=== PATIENT | female | born 1955 | race Hispanic/Latino ===

== ENCOUNTER 2021-01-29 13:31 | Emergency (ER) | payer MEDICARE, OTHER, SELFPAY ==
[2021-01-29 13:31] VITALS: BP 165/101; PULSE 85; RESP 18; TEMP 36.3; O2SAT 99; BMI 36.6
--- NOTE | 2021-01-29 15:06 | CT_ITS ---
STUDY: CT ABDOMEN AND PELVIS WITH CONTRAST REASON FOR EXAM: Female, 65 years old. Abdominal pain -- IV PO Contrast RADIATION DOSAGE (If Supplied By Facility): CTDIvol = ( 15.26 ) mGy, DLP = ( 918.64 ) mGycm TECHNIQUE: Transaxial images were obtained from the dome of the diaphragm to the symphysis pubis without oral contrast. Oral and amp; IV Gastrografin and amp; 100mL Isovue-370 was administered. Sagittal and coronal images were reconstructed. Individualized dose optimization techniques were used for this CT. COMPARISON: None. FINDINGS: There is a subpleural 2.5 mm nodule within the right middle lobe. There is a granuloma within the right middle lobe. The visualized portions of the heart are within normal limits. The liver is diffusely low in attenuation consistent with fatty infiltration. There is a too small to characterize low-attenuation focus within the dome of the right hepatic lobe which may reflect a hemangioma or cyst. There is an additional too small to characterize low-attenuation focus within the left hepatic lobe. Normal gallbladder and extrahepatic biliary system. Normal spleen. Normal pancreas. Normal bilateral adrenal glands. There is a nonobstructing 1.3 mm right renal calculus. There are too small to characterize low-attenuation foci within the left kidney which may reflect underlying cysts. Normal visualized stomach. Normal small intestine. There is diverticulosis, with thickening of the sigmoid colon wall, and pericolonic inflammation changes consistent with acute diverticulitis. There is non-visualization of the appendix. There is diffuse atherosclerotic calcification of the abdominal aorta, without a demonstrated aneurysm. Normal inferior vena cava. Normal retroperitoneum. Normal urinary bladder. Normal abdominal wall. The bones are diffusely demineralized. There are diffuse degenerative changes of the visualized lumbar spine. There is a Schmorl''s node defect within the superior endplate of T12. There is a mid body deformity of L5 which is likely chronic. CT/Abdomen/Pelvis WITH Contrast IMPRESSION: Acute diverticulitis of the sigmoid colon. Fatty infiltration of the liver. Atherosclerosis. Nonobstructing 1.3 mm right renal calculus. Electronically Signed: Julita Mosquera MD at 17:47 EDT Tel , Service support ,
--- NOTE | 2021-01-29 15:08 | EX.ED.DYSGE1 ---
HPI History of Present Illness Chief Complaint: Abd Pain Informant: patient Onset/Context/Timing Onset: Today Context: Gradual Onset Timing: Intermittent Current Severity: Moderate Maximum Severity: Moderate Narrative Narrative: Patient present secondary to abdominal pain. She states has been having diarrhea for the past 2 months. This morning shortly after 2 AM she woke up with lower abdominal pain and cramping. She states was eventually able to go back to sleep. After eating breakfast this morning her pain worsened. Pain seems to be worse in the right lower quadrant but does extend across the entire lower abdomen. She denies fever or chills. No nausea or vomiting. [facility] Medical History Diverticulitis Rheumatic fever TB (tuberculosis) Home Medications ciprofloxacin HCl [Cipro] 500 mg PO BID #20 tab 01/29/21 [Rx Last Taken Unknown] metronidazole [Flagyl] 500 mg PO TID #30 tab 01/29/21 [Rx Last Taken Unknown] Allergy/AdvReac Type Severity Reaction Status Date / Time VIT B 12 AdvReac Nausea Uncoded 01/29/21 13:34 Surgical History History of hysterectomy History of partial colectomy Social History Smoking Status: Never smoker ROS ROS ED Constitutional Constitutional ED: Denies chills or fever(s) Eyes Eyes: Denies change in vision ENT ENT ED: Denies sore throat Cardiovascular Cardiovascular: Denies chest pain Respiratory/Chest Respiratory/Chest: Denies cough or dyspnea Gastrointestinal Gastrointestinal: Reports abdominal pain and diarrhea; Denies nausea or vomiting Genitourinary Genitourinary ED: Denies dysuria Musculoskeletal Musculoskeletal: Denies back pain Integumentary Denies rash Neurologic Neurologic: Denies headache(s) or weakness Psychiatric Psychiatric: Denies anxiety or depression Endocrine Endocrinology: Denies polydipsia or polyuria Allergic/Immunologic Allergic/Immunologic ED: Denies urticaria EXAM Physical Exam Const Vital Signs: 01/29/21 13:31 Temperature 97.4 F L Temperature Source Temporal Pulse Rate 85 Respiratory Rate 18 Blood Pressure 165/101 H Blood Pressure Mean 122 Pulse Ox 99 Oxygen Delivery Method Room Air Positive well nourished and well developed General Appearance ED: well developed HEENT Reports normocephalic and head/scalp atraumatic Eyes PERRL and EOMs intact bilaterally Neck supple Chest Wall inspection of chest normal and palpation of chest normal Resp normal respiratory effort and clear to auscultation bilaterally Cardio regular rate and regular rhythm GI Auscultation: hypoactive bowel sounds Palpation: soft and tender other (Mild lower abdominal tenderness location. No guarding or rebound.) Extremity normal to inspection Neuro oriented x3 and no sensory deficits noted Sensorium / Orientation: alert Motor Exam: strength 5/5 throughout Psych mental status grossly normal Skin no rashes or lesions noted MDM MDM MDM Narrative Medical decision making narrative: Patient was given Toradol and Bentyl for pain. Lab work, urinalysis, CT abdomen and pelvis obtained. Lab Data Attestation: I reviewed the patient's lab results. Labs: Laboratory Results - last 24 hr 01/29/21 01/29/21 01/29/21 15:20 15:30 15:30 WBC 9.2 RBC 4.86 Hgb 14.4 Hct 44.5 MCV 91.6 MCH 29.6 MCHC 32.4 RDW Std Deviation 42.4 RDW Coeff of Majo 12.7 Plt Count 233 MPV 10.8 Immature Gran % (Auto) 0.200 Neut % (Auto) 72.5 H Lymph % (Auto) 21.0 [place] % (Auto) 5.1 Eos % (Auto) 0.8 Baso % (Auto) 0.4 Absolute Neuts (auto) 6.7 Absolute Lymphs (auto) 1.93 Nucleated RBC % 0 Sodium 137 Potassium 3.8 Chloride 104 Carbon Dioxide 26.0 Anion Gap 7 BUN 10 Creatinine 0.87 Estim Creat Clear Calc 49.63 Est GFR (MDRD) Af Amer 83 Est GFR (MDRD) Non-Af 69 BUN/Creatinine Ratio 11.5 Glucose 102 Calcium 8.8 Total Bilirubin 0.70 Direct Bilirubin 0.05 AST 28 ALT 42 Alkaline Phosphatase 118 H Total Protein 7.8 Albumin 3.9 Globulin 3.9 Urine Color Yellow Urine Clarity Clear Urine pH 5.0 Ur Specific [place] 1.015 Urine Protein Negative Urine Glucose (UA) Normal Urine Ketones Negative Urine Occult Blood 10 H Urine Nitrite Negative Urine Bilirubin Negative Urine Urobilinogen Normal Ur Leukocyte Esterase Negative Urine RBC 0 SEEN Urine WBC 0 SEEN Ur Squamous Epith Cells 0 SEEN Urine Bacteria 0 SEEN Urine Mucus 0 SEEN Radiography Diagnostic Testing: Radiology Impression Abdomen/Pelvis CT 08/19/21 15:06 IMPRESSION: Acute diverticulitis of the sigmoid colon. Fatty infiltration of the liver. Atherosclerosis. Nonobstructing 1.3 mm right renal calculus. Electronically Signed: Julita Mosquera MD at 17:47 EDT Tel , Service support , Treatment and Re-Evaluation Comments:: On repeat evaluation patient resting comfortably. Test results discussed with her. She will be treated with Cipro and Flagyl, first dose is given here. Discharge Plan Triage Chief Complaint: Abd Pain ED Provider: Cinthia Vanegas Dx/Rx/DC Orders Clinical Impression: Diverticulitis Instructions: ED Diverticulitis Prescriptions: New ciprofloxacin HCl [Cipro] 500 mg tablet 500 mg PO BID Qty: 20 RF: 0 metronidazole [Flagyl] 500 mg tablet 500 mg PO TID Qty: 30 RF: 0 Primary Care Provider: Care Physician,No Primary Referrals: Elli Gregorio MD [STAFF PHYSICIAN] - 1-2 Weeks Care Physician,No Primary [Primary Care Provider] - Disposition Disposition: Home, Self Care
[2021-01-29] MEDS: Dicyclomine 20 MG/2 ML Vial IM (15:24)
[2021-01-29] MEDS: Ketorolac 15 MG/ML Vial IV (15:30)
[2021-01-29] MEDS: 0.9% Normal Saline 1,000 ML 150 ML IV (15:30)
[2021-01-29 15:39] LABS: Bacteria 0 SEEN /hpf (None Seen); Mucous, Urine 0 SEEN /hpf (<or=2+); Red Blood Cells-Urine 0 SEEN /hpf (0-5); Squamous Epithelial Cells - UA 0 SEEN /hpf (5-10); White Blood Cells 0 SEEN /hpf (0-5)
[2021-01-29 15:42] LABS: Absolute Lymphocyte Count 1.93 X10^3/uL (0.83-4.51); Absolute Neutrophil Count 6.7 X10^3/uL (2.0-7.7); Basophil# 0.04 X10^3/uL; Basophil% 0.4 % (0-1); Eosinophil# 0.07 X10^3/uL; Eosinophils% 0.8 % (0-5); Hematocrit 44.5 % (37-47); Hemoglobin 14.4 g/dL (12.0-15.0); Lymphocyte # 1.93 X10^3/ul (0.83-4.51); Mean Corp Hgb Conc 32.4 g/dL (32-36); Mean Corpuscular Hgb 29.6 pg (27.0-32.0); Mean Corpuscular Volume 91.6 fL (81-99); Mean Platelet Vol. 10.8 fl (6.2-12.0); Monocyte# 0.47 X10^3/uL; Monocyte% 5.1 % (0-10); NRBC Flagged by Analyzer 0 % (0-5); Neutrophil # 6.68 X10^3/uL (2.7-7.7); Neutrophil % 72.5 % (47-70); Platelet Count 233 K/mm3 (150-450); RBC Distribution Width CV 12.7 % (11.6-14.6); RBC Distribution Width SD 42.4 fl (35.1-43.9); Red Blood Count 4.86 M/mm3 (4.2-5.4); White Blood Count 9.2 K/mm3 (4.4-11.0)
[2021-01-29 16:04] LABS: Color, Urine Yellow (Yellow); Glucose, Dipstick Normal (Normal); Ketone-Dipstick Negative (Negative); Leukocyte Esterase-Dipstick Negative /ul (Negative); Nitrite-Dipstick Negative (Negative); Occult Blood-Urine 10 /ul (Negative); Protein-Dipstick Negative (Negative); Specific Gravity, Urine 1.015 (1.002-1.030); Urine Bilirubin Dipstick Negative (Negative); Urine Clarity Clear (Clear); Urine Urobilinogen Normal (Normal)
[2021-01-29 16:04] LABS: AST(SGOT) 28 U/L (15-37); Alanine Aminotransfer ALT/SGPT 42 U/L (13-56); Albumin, Serum 3.9 g/dL (3.2-5.0); Alkaline Phosphatase 118 U/L (45-117); Anion Gap 7 (5-15); BUN 10 mg/dL (7-18); BUN/Creat Ratio 11.5 RATIO (10-20); Bilirubin, Direct 0.05 mg/dL (0.00-0.30); Calcium,Total 8.8 mg/dL (8.5-10.1); Chloride 104 mmol/L (98-107); Creatinine, Serum 0.87 mg/dL (0.55-1.02); EST Glomerular Filtration Rate 69 mL/min (>60); Est Glom Filt Rate - Afr Amer 83 mL/min (>60); Estimated Creatinine Clearance 49.63 ml/min; Globulin 3.9 g/dL (2.2-4.2); Glucose 102 mg/dL (74-106); Potassium 3.8 mmol/L (3.5-5.1); Protein, Total 7.8 g/dL (6.4-8.2); Sodium Level 137 mmol/L (136-145)
[2021-01-29] MEDS: Ciprofloxacin 500 MG Tablet PO (18:32)
[2021-01-29] MEDS: metroNIDAZOLE 500 MG Tablet PO (18:32)
[2021-01-29 18:33] VITALS: BP 178/96; PULSE 66; RESP 16; O2SAT 99
== END 2021-01-29 18:35 | disposition home or self-care (01) ==
PROVIDERS: Emergency Provider Emergency Medicine
DX: K57.32 Diverticulitis of large intestine without perforation or abscess without bleeding (principal); N20.0 Calculus of kidney; K76.0 Fatty (change of) liver, not elsewhere classified; Z20.1 Contact with and (suspected) exposure to tuberculosis; Z90.710 Acquired absence of both cervix and uterus; Z90.49 Acquired absence of other specified parts of digestive tract
CPT/HCPCS: 74177; 80048; 80076; 81001; 85025; 96361; 96372; 96374; 99284; J7030; Q9967